=== PATIENT | male | born 1985 | race Caucasian/White ===

== ENCOUNTER 2020-01-25 09:22 | Outpatient (CLI) | payer OTHER ==
[~2020-01-25 09:22] MED LIST: CYCL5TAB PO; IBUP200T49 PO; METH4TAB2 PO
[2020-01-25] MEDS ORDERED: MIDAZOLAM 1 MG/ML, 5ML ONE ×2 (10:31→10:32)
[2020-01-25] MEDS ORDERED: FENTANYL PF 100 MCG/2ML ONE ×2 (10:31)
[2020-01-25] MEDS ORDERED: FLUMAZENIL 0.1 MG/1 ML, 5ML ONE (10:32)
[2020-01-25] MEDS ORDERED: NALOXONE 1 MG/ML, 2ML ONE (10:32)
== END 2020-01-25 23:59 | disposition home or self-care (01) ==
LOC: RAD 09:22
PROVIDERS: ATTEND Physician Assistant Surgical
DX: M25.522 Pain in left elbow (principal)
CPT/HCPCS: 73221; 99156; 99157; J2250; J3010; J2310